=== PATIENT | female | born 1970 | race Caucasian/White ===

== ENCOUNTER 2021-05-17 23:07 | Emergency (ER) | payer OTHER ==
[~2021-05-17] VITALS: Ht 165.1 cm; Wt 90.7 kg
[2021-05-18 01:00] VITALS: BP 140/70
== END 2021-05-18 01:10 | disposition home or self-care (01) ==
LOC: M.ERS 23:07
DX: S80.861D Insect bite (nonvenomous), right lower leg, subsequent encounter (principal); L03.115 Cellulitis of right lower limb; F17.210 Nicotine dependence, cigarettes, uncomplicated; W57.XXXD Bitten or stung by nonvenomous insect and other nonvenomous arthropods, subsequent encounter